=== PATIENT | female | born 1965 | race Caucasian/White ===

== ENCOUNTER 2021-08-29 13:23 | Emergency (ER) | payer OTHER ==
[2021-08-29 14:07] LABS: HEMOGLOBIN 12.9 gm/dl (12.3-15.3); RED BLOOD COUNT 4.17 M/UL (4.00-5.10); WHITE BLOOD COUNT 12.5 K/UL (4.5-11.0)
[2021-08-29 14:31] LABS: BUN/CREATININE RATIO 31 (0-10)
[2021-08-29] MEDS ORDERED: ZOFRAN4 MG PO (15:28)
== END 2021-08-29 15:58 | disposition home or self-care (01) ==
LOC: ER1 13:23
PROVIDERS: Preventive Medicine Occupational Medicine
DX: G43.909 Migraine, unspecified, not intractable, without status migrainosus (principal); E11.65 Type 2 diabetes mellitus with hyperglycemia; I25.10 Atherosclerotic heart disease of native coronary artery without angina pectoris; I10 Essential (primary) hypertension; J45.909 Unspecified asthma, uncomplicated
CPT/HCPCS: 70450; 80053; 82009; 82962; 83036; 83690; 85025; 85610; 85652; 85730; 86140; 96374; 96375; 99284; J2550; J2765